=== PATIENT | male | born 1975 | race Caucasian/White ===

== ENCOUNTER 2022-06-22 06:16 | Day surgery (SDC) | payer BC, OTHER ==
[2022-06-21 10:06] VITALS: BMI 32.7
[2022-06-22] MEDS ORDERED: EPINEPHrine 1:1,000 1,000 MCG/ML ML ONE (07:10)
[2022-06-22] MEDS ORDERED: BUPIVACAINE HCL/PF 2.5 MG/ML - 30 ML VIAL IJ ONE (07:10)
[2022-06-22] MEDS ORDERED: MIDAZOLAM HCL 2 MG/2 ML SINGLE DOSE VIAL ONE (07:35)
[2022-06-22] MEDS ORDERED: KETAMINE HCL 200 MG/20 ML VIAL ONE (07:36)
[2022-06-22] MEDS ORDERED: PROPOFOL 40 ML ONE (07:36)
[2022-06-22] MEDS ORDERED: SUCCINYLCHOLINE CHLORIDE 200 MG/10 ML SYRINGE ONE (07:36)
[2022-06-22] MEDS ORDERED: ACETAMINOPHEN IVPB ONE (07:55)
[2022-06-22] MEDS ORDERED: BUPIVACAINE HCL/PF 0.25% (2.5MG/ML) 10 ML VIAL IJ ONE (08:29)
[2022-06-22] MEDS ORDERED: ONDANSETRON 4 MG/2 ML VIAL IVPUSH PRN (08:50)
[2022-06-22 09:36] VITALS: RESP 16; TEMP 97.6
[2022-06-22 10:05] VITALS: BP 134/74; PULSE 67
== END 2022-06-22 10:14 | disposition home or self-care (01) ==
LOC: FASU 06:16
PROVIDERS: ATTEND Orthopaedic Surgery
PROC: 0SBC4ZZ Excision of Right Knee Joint, Percutaneous Endoscopic Approach (ICD-10-PCS; 2022-06-22)
PROC: 0SBC4ZZ Excision of Right Knee Joint, Percutaneous Endoscopic Approach (ICD-10-PCS; principal; 2022-06-22 08:20)
DX: S83.241A Other tear of medial meniscus, current injury, right knee, initial encounter (principal); S83.281A Other tear of lateral meniscus, current injury, right knee, initial encounter; S83.8X1A Sprain of other specified parts of right knee, initial encounter; M65.861 Other synovitis and tenosynovitis, right lower leg; X58.XXXA Exposure to other specified factors, initial encounter; Y93.9 Activity, unspecified; Y92.9 Unspecified place or not applicable
CPT/HCPCS: 94760